=== PATIENT | female | born 1970 | race American Indian/Alaskan Native ===

== ENCOUNTER 2018-02-26 16:58 | Emergency (ER) | payer MEDICAID, OTHER ==
[2018-02-26 17:14] VITALS: BP 116/75; PULSE 103; RESP 19; TEMP 97.9; O2SAT 99
--- NOTE | 2018-02-26 17:39 | C.PDOC ---
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 Patient developed pain when she sustained an injury going down the escalator. Pain is localized, worse with weight bearing. Pt Denies LOC, syncope, head injury, LOC, syncope, neck pain, CP, denies deformity, weakness, sensory or vascular deficits to Right foot. Appears in pain now, Time Seen by Provider: 02/26/18 17:01 Chief Complaint (Nursing): Lower Extremity Problem/Injury History Per: Patient History/Exam Limitations: no limitations Onset/Duration Of Symptoms: Hrs Current Symptoms Are (Timing): Still Present Recent travel outside of the [place]: No Past Medical History Reviewed: Historical Data, Nursing Documentation, Vital Signs Vital Signs: Last Vital Signs Temp 97.9 F 02/26/18 17:12 Pulse 103 H 02/26/18 17:12 Resp 19 02/26/18 17:12 BP 116/75 02/26/18 17:12 Pulse Ox 99 02/26/18 17:12 Family History: States: No Known Family Hx - Social History Hx Alcohol Use: No (FORMER) Hx Substance Use: No - Immunization History Hx Tetanus Toxoid Vaccination: No Hx Influenza Vaccination: No Hx Pneumococcal Vaccination: No Review Of Systems Eyes: Negative for: Vision Change Cardiovascular: Negative for: Light Headedness Musculoskeletal: Positive for: Foot Pain (right ) Neurological: Negative for: Weakness, Numbness, Dizziness Physical Exam - Physical Exam Appears: Well, Non-toxic, No Acute Distress Skin: Normal Color, Warm, Dry, No Rash, No Ecchymosis Head: Atraumatic, Normacephalic Eye(s): bilateral: PERRL Extremity: Normal ROM (FAROM of Right ankle and foot, no neurovascular deficits), Tenderness (dorsal aspect of the right foot ), No Pedal Edema, No Calf Tenderness, Capillary Refill (less than 2sec right foot), No Deformity, No Swelling Pulses: Left Dorsalis Pedis: Normal, Right Dorsalis Pedis: Normal Neurological/Psych: Oriented x3, Normal Speech, Normal Cognition, Normal Motor, Normal Sensation, Normal Reflexes ED Course And Treatment O2 Sat by Pulse Oximetry: 99 (RA) Pulse Ox Interpretation: Normal - Other Rad Right foot and ankle X-Ray: Interpreted by Me, Viewed By Me Interpretation: Creator : Elbert Forbes MD. Dictator : Elbert Forbes MD. Helper Electrical : [employer]profit Financial Controller : Elbert Forbes MD. Approver2 : Report Date : 02/26/2018 17:53:13. My Comment : . Date of service: 02/26/2018. PROCEDURE: Right Foot Radiographs. HISTORY: PAIN. COMPARISON: None. FINDINGS: BONES: Lucency involving the 1st proximal phalanx that may extend to the metatarsophalangeal articular surface. JOINTS: Normal. SOFT TISSUES: Soft tissue swelling adjacent to 5th 1st metatarsophalangeal joint. OTHER FINDINGS: None. IMPRESSION: Lucency involving the 1st proximal phalanx and make stent to the metatarsophalangeal articular service for which acute fracture cannot be excluded. ER notification submitted electronically. Progress Note: Acetaminophen 650mg PO administered. Right foot and ankle X-ray ordered. On re-eval, pt is afebrile, hemodynamicaly stable. Non-toxic. Right foot: mild tenderness over dorsal aspect Right foot. No deformity, no skin changes, no edema. FAROM, no neurovascular deficits. Imagings review and discussed with patient. Low suspicion on coment fracture, due to tenderness not over pointed location- 1st promximal phalanx and 1st DIPJ. Julio wrap applied to Right ffot, air cast applied to Right ankle. Crutches provided with instruction. Pt advised and ref. to f/u with Podiatry in 2-3 dyas for re-eavl. return if any new changes. Disposition Counseled Patient/Family Regarding: Studies Performed, Diagnosis, Need For Followup, Rx Given - Disposition Referrals: [facility] [Outside] Disposition: HOME/ ROUTINE Disposition Time: 17:50 Condition: STABLE Additional Instructions: RICE-rest, ice, compression, elevation Air cast for 1 week Follow up with Podiatry Clinic on Thursday from 12 noon-3pm for re-evaluation. return to Ed if any worsening or new changes. Prescriptions: traMADol [Ultram] 50 mg PO TID #7 tab Instructions: Foot Sprain (DC) Forms: [employer] (Eritrean) - Clinical Impression Clinical Impression: Foot sprain - PA / ANIMAL ECOLOGIST / Resident Statement MD/DO has reviewed & agrees with the documentation as recorded. - Scribe Statement The provider has reviewed the documentation as recorded by the Scribe (Edy Gallegos) All medical record entries made by the Scribe were at my direction and personally dictated by me. I have reviewed the chart and agree that the record accurately reflects my personal performance of the history, physical exam, medical decision making, and the department course for this patient. I have also personally directed, reviewed, and agree with the discharge instructions and disposition.
--- NOTE | 2018-02-26 17:56 | RAD ---
Date of service: 02/26/2018 PROCEDURE: Right Foot Radiographs. HISTORY: PAIN COMPARISON: None. FINDINGS: BONES: Lucency involving the 1st proximal phalanx that may extend to the metatarsophalangeal articular surface. JOINTS: Normal. SOFT TISSUES: Soft tissue swelling adjacent to 5th 1st metatarsophalangeal joint OTHER FINDINGS: None. IMPRESSION: Lucency involving the 1st proximal phalanx and make stent to the metatarsophalangeal articular service for which acute fracture cannot be excluded. ER notification submitted electronically.
--- NOTE | 2018-02-26 18:00 | RAD ---
Date of service: 02/26/2018 PROCEDURE: Right Ankle Radiographs. HISTORY: injury COMPARISON: None available. FINDINGS: BONES: No acute fracture. Questionable old medial malleolar fracture. JOINTS: Ankle mortise maintained. Talar dome intact SOFT TISSUES: Normal. OTHER FINDINGS: None. IMPRESSION: No demonstrated acute fracture or dislocation.
== END 2018-02-26 18:47 | disposition home or self-care (01) ==
LOC: C.ER 16:58
DX: S93.601A Unspecified sprain of right foot, initial encounter (principal); X58.XXXA Exposure to other specified factors, initial encounter